=== PATIENT | female | born 1985 | race Caucasian/White ===

== ENCOUNTER 2022-02-22 17:25 | Emergency (ER) | payer BC, OTHER ==
--- NOTE | 2022-02-22 17:29 | ERPHSYRPT ---
- History of Present Illness Time Seen by Provider: 02/22/22 17:29 Source: patient Exam Limitations: no limitations Physician History: This is a 36-year-old white female who is a patient of Dr. 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 Her primary complaint today is a severe sore throat. She also has some left ear pain and in her mind, facial swelling of the left side of her face. Last week, patient states that she had a mono test performed that was negative. However she did not appear to be certain of that. She states that on 02/21/2022 patient took a home COVID test and this was negative. Patient was seen at [facility] today and was given an injection of a steroid. She also had, per her report, the strep test that was negative today. Because of her worsening sore throat, she came to the emergency department for evaluation and management. Patient denies chest pain. She denies shortness of breath. 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 She was relatively taken off of her cardiac medications by her environmental sustainability manager. Patient has a history of anxiety and depression. Timing/Duration: day(s) (6), worse Cough Quality/Degree: no cough Possible Cause: no prior episodes Modifying Factors: Improves With: other (Hurts to swallow) Associated Symptoms: earache (Left side), headache, muscle aches, sore throat, No fever, No chills, No chest pain/soreness, No cough, No shortness of breath Allergies/Adverse Reactions: azithromycin Allergy (Intermediate, Verified 02/22/22 17:41) rash vomit Sulfa (Sulfonamide Antibiotics) Allergy (Intermediate, Verified 02/22/22 17:41) rash vomit Home Medications: ALPRAZolam [Alprazolam] 0.5 mg PO HS 02/22/22 [History] Norgestimate-Ethinyl Estradiol [Tri Femynor 28 Tablet] 1 tab PO DAILY 02/22/22 [History] Phentermine HCl 37.5 mg PO DAILY 02/22/22 [History] Venlafaxine HCl ER 75 mg [Effexor XR 75 MG] 75 mg PO DAILY 02/22/22 [History] Travel Risk - International Travel Have you traveled outside of the country in past 3 weeks: No - Coronavirus Screening Are you exhibiting any of the following symptoms?: No Close contact with a COVID-19 positive Pt in past 14-21 Days: No - Review of Systems Constitutional: No Symptoms Eyes: No Symptoms Ears, Nose, & Throat: Ear Pain (Left side), Throat Pain Respiratory: No Symptoms Cardiac: No Symptoms Abdominal/Gastrointestinal: No Symptoms Genitourinary Symptoms: No Symptoms Musculoskeletal: Arthralgias, Myalgias Skin: Rash Neurological: No Symptoms Psychological: No Symptoms Endocrine: No Symptoms Hematologic/Lymphatic: No Symptoms Immunological/Allergic: No Symptoms All Other Systems: Reviewed and Negative - Past Medical History Pertinent Past Medical History: Yes - Past Surgical History Past Surgical History: Yes - Nursing Vital Signs Nursing Vital Signs: Initial Vital Signs Temperature 98.4 F 02/22/22 17:32 Pulse Rate 93 H 02/22/22 17:32 Respiratory Rate 20 02/22/22 17:32 Blood Pressure 153/99 02/22/22 17:32 O2 Sat by Pulse Oximetry 98 02/22/22 17:32 Pain Scale Pain Intensity 8 - Physical Exam General Appearance: no apparent distress, alert, anxiety Eye Exam: PERRL/EOMI, eyes nml inspection Ears, Nose, Throat Exam: pharyngeal erythema Neck Exam: lymphadenopathy (Left submandibular and upper left cervical chain) Respiratory Exam: normal breath sounds, lungs clear, airway intact, No chest tenderness, No respiratory distress, No accessory muscle use Cardiovascular Exam: regular rate/rhythm, normal heart sounds, normal peripheral pulses Gastrointestinal/Abdomen Exam: soft, normal bowel sounds, No tenderness Pelvic Exam: not done Rectal Exam: not done Back Exam: normal inspection, normal range of motion, No CVA tenderness, No vertebral tenderness Extremity Exam: normal inspection, normal range of motion, pelvis stable Neurologic Exam: alert, oriented x 3, cooperative, material damage adjuster II-XII nml as tested, normal mood/affect, nml cerebellar function, nml station & gait, sensation nml Skin Exam: normal color, warm, dry Lymphatic Exam: No adenopathy SpO2 Interpretation: normal O2 Delivery: Room Air - Course Nursing assessment & vital signs reviewed: Yes Ordered Tests: Medication Summary Discontinued Medications Generic Name Dose Route Start Last Admin Trade Name Freq PRN Reason Stop Dose Admin Hydrocodone Bitart/Acetaminophen 10 ml 02/22/22 18:02 02/22/22 18:13 Hydrocodone/Acetaminophen 5 Ml Udcup PO 02/22/22 18:03 10 ml STAT STA Administration Hydrocodone Bitart/Acetaminophen Confirm 02/22/22 18:13 Hydrocodone/Acetaminophen 5 Ml Udcup Administered 02/22/22 18:14 Dose 10 ml .ROUTE .STK-MED ONE - Progress Air Movement: good Progress Note: 02/22/22 18:49 I am signing this patient out to Dr. Blayne Tate at shift change. He is going to follow-up on the results of pending studies and make final disposition. Blood Culture(s) Obtained: No Antibiotics given: No Counseled pt/family regarding: lab results, diagnosis, need for follow-up - Departure Departure Disposition: Home Clinical Impression: Pharyngitis Condition: Stable Critical Care Time: No Referrals: AMANDEEP GIANG [Primary Care Provider] - Follow up/PCP as directed Additional Instructions: Drink plenty of clear liquids. Take your medication as prescribed. Follow-up with your primary care physician tomorrow by phone to make arrangements for further evaluation and management. Call your primary care provider in 48 hours to check on the mumps test. Return to the emergency department if symptoms worsen Prescriptions: Hydrocodone/Acetaminophen [Hydrocodone-Acetamn 7.5-325/15] 10 ml PO Q8H PRN PRN #120 ml MDD 30 ml PRN Reason: Cough Prednisone 10 mg [Deltasone 10 mg] 10 mg PO TID #12 tablet
[2022-02-22] MEDS ORDERED: HYDROCODONE-ACETAMIN 2.5-108/5 ML SOLUTION PO STA (18:02)
[2022-02-22] MEDS ORDERED: HYDROCODONE-ACETAMIN 2.5-108/5 ML SOLUTION ONE (18:13)
[2022-02-22 19:04] LABS: INFLUENZA A NEGATIVE (NEGATIVE); INFLUENZA B NEGATIVE (NEGATIVE); RESPIRATORY SYNCTIAL VIRUS NEGATIVE (Negative); SARS-CoV-2 Xpert Express NEGATIVE (NEGATIVE)
[2022-02-22 19:05] VITALS: BP 131/98; PULSE 87; O2SAT 98
[2022-02-24 19:09] LABS: Mumps Abs, IgG 95.9 AU/mL (Immune >10.9)
== END 2022-02-22 19:15 | disposition home or self-care (01) ==
LOC: ED 17:25
DX: J02.9 Acute pharyngitis, unspecified (principal); R21 Rash and other nonspecific skin eruption; R51.9 Headache, unspecified; M79.10 Myalgia, unspecified site; R53.83 Other fatigue; H92.02 Otalgia, left ear; Z79.891 Long term (current) use of opiate analgesic; Z79.899 Other long term (current) drug therapy; Z86.16 Personal history of COVID-19
CPT/HCPCS: 0241U; 36415; 86735; 99283; A9270-GY

== ENCOUNTER 2022-04-27 19:08 | Emergency (ER) | payer BC, OTHER ==
[2022-04-27] MEDS ORDERED: MORPHINE SULFATE 2 MG INJ IV ONE (20:52)
[2022-04-27] MEDS ORDERED: Sodium Chloride 0.9% 1000 ML 1,000 ML IV SCH (21:00)
--- NOTE | 2022-04-27 21:00 | ERPHSYRPT ---
- History of Present Illness Time Seen by Provider: 04/27/22 20:16 Historian: patient Exam Limitations: no limitations Patient Subjective Stated Complaint: pt states that she had had abdominal pain and sqeezing feeling for 2 weeks. pt states as soon as she eats or drinks she vomits minutes later. states she is passign gas and having regular bowel movments. states she feels a pulsating pain in mid abdominal area. bowels sounds present in all 4 quads. pain is worse today. states she was recently diagnosed with a low EF on echocardiogram by Dr. Carrillo, that is likely familial. Triage Nursing Assessment: pt is alert and oriented and states her pain is at 7/10 in abdominal area. Physician History: Patient is a 36-year-old female presents to emergency department for evaluation of epigastric and left upper quadrant pain. Patient states that her pain has been intermittent for the past 2 weeks. However pain is got worse over the past day. Patient states she now is unable to tolerate p.o. Patient states when she eats she vomits. Patient unable to tolerate liquids or solids. However no change in bowel movements. No diarrhea. No trauma. No fever. Patient states she feels a pulsating sensation in her abdomen. 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 Patient states her ejection fraction dropped to as low as 30%. However she is now up to the 51 to 55% range. Patient denies chest pain. No shortness of breath. Patient's pain currently 7 out of 10. Patient requesting pain medication. Patient denies a history of the same. She voices no other complaints or concerns at this time. Portions of this note were created with voice recognition technology. There may be grammatical, spelling, punctuation or sound alike errors Timing/Duration: week(s) Quality: aching Abdominal Pain Onset Location: LUQ, epigastric Pain Radiation: no radiation Severity of Pain-Max: moderate Severity of Pain-Current: mild Modifying Factors: Improves With: eating Associated Symptoms: denies symptoms Previous symptoms: no prior history Allergies/Adverse Reactions: azithromycin Allergy (Intermediate, Verified 02/22/22 17:41) rash vomit Sulfa (Sulfonamide Antibiotics) Allergy (Intermediate, Verified 02/22/22 17:41) rash vomit erythromycin base Allergy (Verified 04/27/22 20:25) Home Medications: ALPRAZolam [Alprazolam] 0.5 mg PO HS 02/22/22 [History] Norgestimate-Ethinyl Estradiol [Tri Femynor 28 Tablet] 1 tab PO DAILY 02/22/22 [History] Phentermine HCl 37.5 mg PO DAILY 02/22/22 [History] Venlafaxine HCl ER 75 mg [Effexor XR 75 MG] 75 mg PO DAILY 02/22/22 [History] Hx Tetanus, Diphtheria Vaccination/Date Given: No Hx Influenza Vaccination/Date Given: No Hx Pneumococcal Vaccination/Date Given: No Travel Risk - International Travel Have you traveled outside of the country in past 3 weeks: No - Coronavirus Screening Are you exhibiting any of the following symptoms?: No Close contact with a COVID-19 positive Pt in past 14-21 Days: No - Vaccine Status Have you recieved a Covid-19 vaccination: Yes 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: [employer] - Vaccination Dates Date of 2cond Vaccination (if applicable): unknown - Review of Systems Constitutional: No Symptoms, No Fever, No Chills Eyes: No Symptoms Ears, Nose, & Throat: No Symptoms Respiratory: No Symptoms, No Cough, No Dyspnea Cardiac: No Symptoms, No Chest Pain, No Edema, No Syncope Abdominal/Gastrointestinal: No Symptoms, No Abdominal Pain, No Nausea, No Vomiting, No Diarrhea Genitourinary Symptoms: No Symptoms, No Dysuria Musculoskeletal: No Symptoms, No Back Pain, No Neck Pain Skin: No Symptoms, No Rash Neurological: No Symptoms, No Dizziness, No Focal Weakness, No Sensory Changes Psychological: No Symptoms Endocrine: No Symptoms Hematologic/Lymphatic: No Symptoms Immunological/Allergic: No Symptoms All Other Systems: Reviewed and Negative - Past Medical History Pertinent Past Medical History: Yes Psycho-Social History: Anxiety, Depression - Past Surgical History Past Surgical History: Yes Female Surgical History: Tubal Ligation - Social History Smoking Status: Never smoker Exposure to second hand smoke: Yes Drug Use: none Patient Lives Alone: No - Female History Hx Last Menstrual Period: 04/13/22 Hx Now: No - Nursing Vital Signs Nursing Vital Signs: Initial Vital Signs Temperature 97.7 F 04/27/22 20:08 Pulse Rate 84 04/27/22 20:08 Respiratory Rate 18 04/27/22 20:08 Blood Pressure 123/100 04/27/22 20:08 O2 Sat by Pulse Oximetry 100 04/27/22 20:08 Pain Scale Pain Intensity 5 - Physical Exam General Appearance: no apparent distress, alert Eye Exam: PERRL/EOMI, eyes nml inspection Ears, Nose, Throat Exam: normal ENT inspection, TMs normal, pharynx normal, moist mucous membranes Neck Exam: normal inspection, non-tender, supple, full range of motion Respiratory Exam: normal breath sounds, lungs clear, airway intact, No chest tenderness, No respiratory distress Cardiovascular Exam: regular rate/rhythm, normal heart sounds, normal peripheral pulses Gastrointestinal/Abdomen Exam: soft, tenderness, other (Tenderness to palpation epigastrium left upper quadrant.), No mass, No ecchymosis, No organomegaly, No splenomegaly Back Exam: normal inspection, normal range of motion, No CVA tenderness, No vertebral tenderness Extremity Exam: normal inspection, normal range of motion, pelvis stable Neurologic Exam: alert, oriented x 3, cooperative, normal mood/affect, nml cerebellar function, sensation nml, No motor deficits Skin Exam: normal color, warm, dry SpO2 Interpretation: normal SpO2: 100 O2 Delivery: Room Air - Course Nursing assessment & vital signs reviewed: Yes EKG Interpreted by Me: RATE (78), Sinus Rhythm, NORMAL AXIS, NORMAL INTERVALS - CT Exams Abdomen/Pelvis CT Interpretation: Tele-radiologist Report (Negative for acute inflammatory process in the abdomen or pelvis) Ordered Tests: Active Orders 24 hr Category Date Time Status IV Insertion STAT Care 04/27/22 20:52 Active ABDOMEN AND PELVIS W/0 CONTRAS [CT] Stat Exams 04/27/22 22:33 Taken CBC W DIFF Stat Lab 04/27/22 20:52 Ordered CMP Stat Lab 04/27/22 20:52 Ordered HCG,QUALITATIVE URINE Stat Lab 04/27/22 21:02 Completed LIPASE Routine Lab 04/27/22 Completed TROPONIN Q4H Lab 04/27/22 21:00 Ordered TROPONIN Q4H Lab 04/28/22 01:00 Ordered TROPONIN Q4H Lab 04/28/22 05:00 Ordered UA W/RFX CULTURE Stat Lab 04/27/22 21:02 Completed Medication Summary Generic Name Dose Route Start Last Admin Trade Name Freq PRN Reason Stop Dose Admin Sodium Chloride 1,000 mls @ 100 mls/hr 04/27/22 21:00 Sodium Chloride 0.9% 1000 Ml IV 05/27/22 20:59 .Q10H SUELLEN Discontinued Medications Generic Name Dose Route Start Last Admin Trade Name Nelda PRN Reason Stop Dose Admin Morphine Sulfate 2 mg 04/27/22 20:52 04/27/22 22:29 Morphine Sulfate 2 Mg/Ml Inj IV 04/27/22 20:53 2 mg STAT ONE Administration Morphine Sulfate Confirm 04/27/22 22:29 Morphine Sulfate 2 Mg/Ml Inj Administered 04/27/22 22:30 Dose 2 mg .ROUTE .STK-MED ONE Ondansetron HCl 4 mg 04/27/22 22:27 04/27/22 22:30 Zofran 4 Mg/Udtablet Orally Disintegrating PO 04/27/22 22:28 4 mg STAT ONE Administration Ondansetron HCl Confirm 04/27/22 22:28 Zofran 4 Mg/Udtablet Orally Disintegrating Administered 04/27/22 22:29 Dose 4 mg .ROUTE .STK-MED ONE Lab/Rad Data: Laboratory Results 04/27/22 04/27/22 04/27/22 Range/Units Unknown 21:02 21:02 Lipase 253 (23-300) U/L Urinalys Dipstick Clnc MAIN LAB Urine Color YELLOW (YELLOW) Urine Appearance CLEAR (CLEAR) Urine pH 5.5 (5-6) Ur Specific [place] 1.015 (1.005-1.025) POC Urine Protein Conf NEGATIVE (Negative) Urine Ketones LARGE-80 (NEGATIVE) Urine Nitrite NEGATIVE (NEGATIVE) Urine Bilirubin NEGATIVE (NEGATIVE) Urine Urobilinogen 0.2 (0-1) mg/dL Urine Leukocytes NEGATIVE (NEGATIVE) Urine WBC (Auto) 0-2 (0-5) /HPF Urine RBC (Auto) 0-2 (0-2) /HPF U Epithel Cells (Auto) RARE (FEW) /HPF Urine Bacteria (Auto) Not Reportable Urine RBC NEGATIVE (0-5) Sav/ul Urine Mucus (Auto) SLIGHT (NEGATIVE) /HPF Ur Culture Indicated? NO Urine Glucose NEGATIVE (NEGATIVE) mg/dL Urine HCG, Qual NEGATIVE (Negative) - Progress Progress: improved Progress Note: Staff only able to draw enough blood to check lipase. Lipase within normal limits. CT abdomen pelvis normal as well. Vital stable. Patient states that her primary care doctor is unavailable till May. She prefers to be referred to [facility]. A referral to [facility] made on discharge paperwork. Patient will follow up on an outpatient basis for further evaluation. Patient voices no other complaints or concerns at this time. Portions of this note were created with voice recognition technology. There may be grammatical, spelling, punctuation or sound alike errors 04/27/22 23:51 Counseled pt/family regarding: diagnosis, need for follow-up, rad results - Departure Departure Disposition: Home Clinical Impression: Abdominal pain Condition: Stable Critical Care Time: No Referrals: AMANDEEP VU [Primary Care Provider] - Follow up/PCP as directed ASH FELIPE NP [NON-STAFF PHY W/O PRIVILEGES] - Follow up/PCP as directed Additional Instructions: Discharge/Care Plan CARLOSMEDARDO RYAN was seen on 04/27/22 in the Emergency Room. The patient was counseled regarding Diagnosis,Lab results, Imaging studies, need for follow up and when to return to the Emergency Room. Prescriptions given: Discharge Note I have spoken with the patient and/or caregivers. I have explained the patient's condition, diagnosis and treatment plan based on the information available to me at this time. I have answered the patient's and/or caregiver's questions and ad dressed any concerns. The patient and/or caregivers have as good understanding of the patient's diagnosis, condition and treatment plan as can be expected at this point. The vital signs have been stable. The patient's condition is stable and appropriate for discharge from the emergency department. The patient will pursue further outpatient evaluation with the primary care physician or other designated or consulting physician as outlined in the discharge instructions. The patient and/or caregivers are agreeable to this plan of care and follow-up instructions have been explained in detail. The patient and/or caregivers have received these instruction. The patient/and or caregivers are aware that any significant change in condition or worsening of symptoms should prompt an immediate return to this or the closest emergency department or call 911.
[2022-04-27 21:50] LABS: Appearance CLEAR (CLEAR); Bilirubin NEGATIVE (NEGATIVE); Glucose NEGATIVE (NEGATIVE); Ketones LARGE-80 (NEGATIVE); Ph 5.5 (5-6); Protein,Urine Dip NEGATIVE (Negative); RBC NEGATIVE Ery/ul (0-5); Specific Gravity 1.015 (1.005-1.025)
[2022-04-27 21:51] LABS: Dipstick done @ ? MAIN LAB; Nitrite NEGATIVE (NEGATIVE); Urobilinogen 0.2 mg/dL (0-1)
[2022-04-27 21:52] LABS: Epithelial Cells RARE /HPF (FEW); Mucus SLIGHT /HPF (NEGATIVE); RBC 0-2 /HPF (0-2); Urine Cultured Indicated? NO; WBC 0-2 /HPF (0-5)
[2022-04-27] MEDS ORDERED: ZOFRAN ODT 4 MG PO ONE (22:27)
[2022-04-27] MEDS ORDERED: ZOFRAN ODT 4 MG ONE (22:28)
[2022-04-27] MEDS ORDERED: MORPHINE SULFATE 2 MG INJ ONE (22:29)
[2022-04-27 23:49] VITALS: BP 130/91
[2022-04-28 00:13] VITALS: PULSE 79; O2SAT 98
--- NOTE | 2022-04-28 08:57 | XRAY ---
Indication: Left upper quadrant pain. Constipation, nausea, and vomiting. Multiple contiguous axial images obtained through the abdomen and pelvis without contrast. Comparison: None Lung bases clear. Heart not enlarged. Stomach mildly distended with food/fluid. Noncontrasted stomach and bowel loops appear nonobstructed with normal appendix. Little scattered colonic fecal debris greatest in the right hemicolon. Bilateral tubal ligation clips. No free fluid/air. Remaining liver, gallbladder, pancreas, spleen, adrenal glands, kidneys, ureters, bladder, uterus, and aorta are unremarkable for noncontrast exam. Osseous structures intact with minimal dextroscoliosis centered at L1. No ventral or inguinal hernias. Impression: Negative CT abdomen/pelvis without contrast exam. Comment: Preliminary interpretation made by [facility]. No critical discrepancy.
== END 2022-04-28 00:13 | disposition home or self-care (01) ==
LOC: ED 19:08
DX: R10.12 Left upper quadrant pain (principal); R10.13 Epigastric pain; R11.10 Vomiting, unspecified; Z79.899 Other long term (current) drug therapy
CPT/HCPCS: 36415; 74176; 81015; 81025; 83690; 96374; 99283; J2270; Q0162

== ENCOUNTER 2022-11-28 07:32 | Day surgery (SDC) | payer BC, OTHER ==
[~2022-11-28 07:32] MED LIST: CEFAZOLIN 2 GM-D5W BAG** 2 GM/50 ML ML IV ONE; CEFAZOLIN 2 GM-D5W BAG** 2 GM/50 ML ML IV SCH; Lactated Ringers 1,000 ML IV ONE; Lactated Ringers 1,000 ML IV SCH
[2022-11-28] MEDS ORDERED: Transderm Scop 1.5MG Patch ONE (07:57)
[2022-11-28] MEDS ORDERED: Transderm Scop 1.5MG Patch TOP PRN (08:26)
[2022-11-28] MEDS ORDERED: Versed 2 MG/2 ML Injection IV PRN (08:33)
[2022-11-28] MEDS ORDERED: Versed 2 MG/2 ML Injection IV ONE (08:55)
[2022-11-28] MEDS ORDERED: DIPRIVAN 200 MG/20 ML IV ONE (09:24)
[2022-11-28] MEDS ORDERED: Xylocaine-Mpf 2% 5 Ml Vial ONE (09:24)
[2022-11-28] MEDS ORDERED: Decadron 4 MG INJ ONE (09:24)
[2022-11-28] MEDS ORDERED: SUBLIMAZE 100 MCG/2 ML ONE (09:24)
[2022-11-28] MEDS ORDERED: Zofran 4 MG/2 ML VIAL ONE (09:24)
[2022-11-28] MEDS ORDERED: TORAdol 30 mg Injection ONE (09:31)
[2022-11-28] MEDS ORDERED: TORAdol 30 mg Injection IM ONE (10:49)
[2022-11-28] MEDS ORDERED: Zofran 4 MG/2 ML VIAL IV PRN (10:49)
[2022-11-28 11:36] VITALS: O2SAT 98
[2022-11-28 11:50] VITALS: BP 157/94; PULSE 69
--- NOTE | 2022-11-29 08:04 | OP ---
SURGERY DATE/TIME: 11/28/2022 0924 PREOPERATIVE DIAGNOSIS: Menorrhagia with failed medical management. POSTOPERATIVE DIAGNOSIS: Menorrhagia with failed medical management. PROCEDURE: Hysteroscopy D&C with NovaSure ablation. SURGEON: Taj Nielsen D.O. IGNITION MECHANIC: Shala Miles, surgical device sales representative. ANESTHESIA: General. ESTIMATED BLOOD LOSS: Minimal. COMPLICATIONS: None. INDICATIONS: The risks, benefits, indications and alternatives of the procedure were reviewed with the patient prior to procedure. The patient understood the risk of infection, bleeding, bowel injury, bladder injury, uterine perforation, pelvic infection, thromboembolic disorder associated with the surgery and desires to have this surgery as a possible means to alleviate her current medical condition. DESCRIPTION OF PROCEDURE AND FINDINGS: At this point the patient is taken to the operating room, given general sedation, placed in the dorsal lithotomy position, prepped and draped in the usual sterile fashion. A weighted speculum is then placed into the patient's vagina and the anterior lip of the cervix is grasped with a single tooth tenaculum. Endocervical dilators were advanced through the endocervical canal where a 5 mm hysteroscope was then placed in through the endocervical region towards the fundal region where visualization of the uterine cavity appeared to be within normal limits and no gross abnormalities were visualized. From this point hysteroscope was removed and a curette was then placed into the fundus of the uterus and curettage was performed in all quadrants of the uterus retrieving a mild to moderate amount of tissue. From this point hemostasis was obtained. From this point, the NovaSure instrument was then placed in through the endocervical region towards the fundal region and retracted approximately 1 cm with a length of 6 cm. After engagement of the machine at 6 cm, the width was noted to be 3.6 cm and the ablation then took place with approximation of 36 seconds of ablative time. After complete ablation, the instrument was then disengaged and removed from the uterine cavity without complication. From this point all instruments were removed from the patient's vaginal region. The patient was then taken out of the dorsal lithotomy position, was then taken out of anesthesia and was taken to the recovery room in stable condition. All instruments and laps were accounted for x2.
== END 2022-11-28 11:55 | disposition home or self-care (01) ==
LOC: SDC 07:32
PROVIDERS: ATTEND Obstetrics & Gynecology
DX: N92.0 Excessive and frequent menstruation with regular cycle (principal)
CPT/HCPCS: 81025; J0690; J1100; J1885; J2250; J2405; J2704; J3010; A9270-GY

== ENCOUNTER 2024-06-11 17:07 | Emergency (ER) | payer BC ==
[2024-06-11 17:18] VITALS: RESP 20; TEMP 97.5; O2SAT 100
--- NOTE | 2024-06-11 17:18 | ERPHSYRPT ---
- History of Present Illness Source: patient Exam Limitations: no limitations Timing/Duration: gradual onset (Persistent) Severity: mild (To moderate) ENT Location: dental (Left upper molars) Prearrival Treatment: prescription meds (Clindamycin and Flagyl) Modifying Factors: Improves With: nothing Associated Symptoms: facial pain/swelling (Left cheek worsening), tooth pain (Left upper molar sites), No sore throat, No difficulty swallowing Hx Tetanus, Diphtheria Vaccination/Date Given: No Hx Influenza Vaccination/Date Given: No Hx Pneumococcal Vaccination/Date Given: No <ESTEPHANIA HENRIQUEZ - Last Filed: 06/11/24 19:07> <MICHAEL TATE - Last Filed: 06/11/24 21:47> - History of Present Illness Time Seen by Provider: 06/11/24 17:18 Physician History: This is a 38-year-old white female patient who has had 2 root canals in the left upper molar region. Most recently, the second root canal was done approximately 2 weeks ago. Since that time she continues to have throbbing pain in her left cheek feels swollen and she feels as though there may be an abscess or infection tracking down her cheek to the proximal neck area on the left side. She has had a low-grade fever. Patient has been on clindamycin for 5 days and started on Flagyl in the last day or 2. (ESTEPHANIA HENRIQUEZ) Allergies/Adverse Reactions: azithromycin Allergy (Intermediate, Verified 10/09/22 07:21) rash vomit Sulfa (Sulfonamide Antibiotics) Allergy (Intermediate, Verified 10/09/22 07:21) rash vomit erythromycin base Allergy (Verified 10/09/22 07:21) Home Medications: ALPRAZolam [Alprazolam] 0.5 mg PO HS 02/22/22 [History] Omeprazole Magnesium [Prilosec Otc] 40 tab PO DAILY 10/09/22 [History] Travel Risk - International Travel Have you traveled outside of the country in past 3 weeks: No - Emerging Infectious Disease Are you exhibiting symptoms associated with any current EIDs: No <ESTEPHANIA HENRIQUEZ - Last Filed: 06/11/24 19:07> - Review of Systems Constitutional: No Symptoms Eyes: No Symptoms Ears, Nose, & Throat: Other (Left cheek/facial swelling and pain) Respiratory: No Symptoms Cardiac: No Symptoms Abdominal/Gastrointestinal: No Symptoms Genitourinary Symptoms: No Symptoms Musculoskeletal: No Symptoms Skin: No Symptoms Neurological: No Symptoms Psychological: No Symptoms Endocrine: No Symptoms Hematologic/Lymphatic: No Symptoms Immunological/Allergic: No Symptoms All Other Systems: Reviewed and Negative <ESTEPHANIA HENRIQUEZ - Last Filed: 06/11/24 19:07> - Past Medical History Pertinent Past Medical History: Yes ENT History: No Pertinent History Cardiac History: Hypertension Respiratory History: No Pertinent History Endocrine Medical History: No Pertinent History Musculoskeletal History: No Pertinent History GI Medical History: No Pertinent History History: No Pertinent History Psycho-Social History: Anxiety, Depression Female Reproductive Disorders: No Pertinent History - Past Surgical History Past Surgical History: Yes Neuro Surgical History: No Pertinent History Cardiac: No Pertinent History Respiratory: No Pertinent History Gastrointestinal: No Pertinent History Genitourinary: No Pertinent History Female Surgical History: Section, Tubal Ligation Other Surgical History: x2, lumpectomy 2016 - Social History Smoking Status: Former smoker Exposure to second hand smoke: Yes Drug Use: none Patient Lives Alone: No <ESTEPHANIA HENRIQUEZ - Last Filed: 06/11/24 19:07> - Physical Exam General Appearance: no apparent distress, alert, anxiety, thin Eye Exam: bilateral eye: normal inspection, PERRL, EOMI Ear Exam: bilateral ear: auricle normal Nasal Exam: normal inspection Throat Exam: normal, pharynx normal, dental tenderness (Upper molar) Neck Exam: normal inspection, non-tender, supple, full range of motion Cardiovascular/Respiratory Exam: chest non-tender, no respiratory distress Abdominal Exam: non-tender Neurologic Exam: alert, oriented x 3, cooperative, associate 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 of 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 II-XII nml as tested, nml cerebellar function, nml station & gait, sensation nml Skin Exam: normal color, warm, dry SpO2 Interpretation: normal O2 Delivery: Room Air <ESTEPHANIA HENRIQUEZ - Last Filed: 06/11/24 19:07> - Nursing Vital Signs Nursing Vital Signs: Initial Vital Signs Temperature 97.5 F 06/11/24 17:12 Pulse Rate 89 06/11/24 17:12 Respiratory Rate 20 06/11/24 17:12 Blood Pressure 141/89 06/11/24 17:12 O2 Sat by Pulse Oximetry 100 06/11/24 17:12 Pain Scale Pain Intensity 0 - Course Nursing assessment & vital signs reviewed: Yes <ESTEPHANIA HENRIQUEZ - Last Filed: 06/11/24 19:07> - CT Exams Maxillofacial Bones CT Interpretation: Tele-radiologist Report (CT facial bones no comps. Normal CT facial bones without contrast) <MICHAEL TATE - Last Filed: 06/11/24 21:47> Ordered Tests: Active Orders 24 hr Category Date Time Status FACIAL BONES WO CONTRAST [CT] Stat Exams 06/11/24 17:41 Taken Medication Summary Discontinued Medications Generic Name Dose Route Start Last Admin Trade Name Freq PRN Reason Stop Dose Admin Ibuprofen 400 mg 06/11/24 18:33 06/11/24 18:54 Ibuprofen 400 Mg Tablet PO 06/11/24 18:34 400 mg STAT ONE Administration Ibuprofen Confirm 06/11/24 18:53 Ibuprofen 400 Mg Tablet Administered 06/11/24 18:54 Dose 400 mg .ROUTE .STK-MED ONE Oxycodone/Acetaminophen 1 tab 06/11/24 18:33 06/11/24 18:53 Oxycodone Hcl/Apap 5 Mg/325 Mg Tablet PO 06/11/24 18:34 1 tab STAT STA Administration Oxycodone/Acetaminophen Confirm 06/11/24 18:53 Oxycodone Hcl/Apap 5 Mg/325 Mg Tablet Administered 06/11/24 18:54 Dose 1 tab .ROUTE .STK-MED ONE - Progress Progress: improved, pain not gone completely <ESTEPHANIA HENRIQUEZ - Last Filed: 06/11/24 19:07> - Progress Counseled pt/family regarding: diagnosis, need for follow-up, rad results <MICHAEL TATE - Last Filed: 06/11/24 21:47> - Progress Progress Note: 06/11/24 19:10 I medical decision making and the assignment of low complexity to this patient's medical issue today is based on review of the patient's past medical history, review the patient's medication list, the review of patient drug allergy list, history present illness and physical findings on examination. The workup in this patient includes CT scan of the face to evaluate for facial, dental subcutaneous abscesses 06/11/24 19:11 I am transferring care of this patient to Dr. Tate at shift change. He will follow-up on pending studies and make final disposition. (ESTEPHANIA HENRIQUEZ) 38-year-old female presents to our ED for evaluation of facial swelling. Patient has a known dental abscess she is currently on her second round of clindamycin and metronidazole. Patient feels that her symptoms are worsening. Note interval trauma. CT face ordered per Dr. Henriquez is negative for fractures no obvious abnormalities or no mention of worsening abscess. 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 She will speak to her dentist for further management options. No indication for further workup. Patient advised to continue the clindamycin and Flagyl. Patient states she is ready for discharge. She voices no other complaints or concerns at this time. Portions of this note were created with voice recognition technology. There may be grammatical, spelling, punctuation or sound alike errors Portions of this note were created with voice recognition technology. There may be grammatical, spelling, punctuation or sound alike errors 06/11/24 21:45 (MICHAEL TATE) Medical Desision Making - Independent Historian Additional History obtained from: Spouse <ESTEPHANIA HENRIQUEZ - Last Filed: 06/11/24 19:07> - Departure Departure Disposition: Home Critical Care Time: No <ESTEPHANIA HENRIQUEZ - Last Filed: 06/11/24 19:07> <MICHAEL TATE - Last Filed: 06/11/24 21:47> - Departure Clinical Impression: Pain, dental, Dental abscess, Facial swelling Condition: Stable Referrals: AMANDEEP VU [Primary Care Provider] - Follow up/PCP as directed Additional Instructions: Discharge/Care Plan MEDARDO GONZALEZ RYAN was seen on 06/11/24 in the Emergency Room. The patient was counseled regarding Diagnosis,Lab results, Imaging studies, need for follow up and when to return to the Emergency Room. Prescriptions given: Discharge Note I have spoken with the patient and/or caregivers. I have explained the patient's condition, diagnosis and treatment plan based on the information available to me at this time. I have answered the patient's and/or caregiver's questions and addressed any concerns. The patient and/or caregivers have as good understanding of the patient's diagnosis, condition and treatment plan as can be expected at this point. The vital signs have been stable. The patient's condition is stable and appropriate for discharge from the emergency department. The patient will pursue further outpatient evaluation with the primary care physician or other designated or consulting physician as outlined in the discharge instructions. The patient and/or caregivers are agreeable to this plan of care and follow-up instructions have been explained in detail. The patient and/or caregivers have received these instruction. The patient/and or caregivers are aware that any significant change in condition or worsening of symptoms should prompt an immediate return to this or the closest emergency department or call 911.
[2024-06-11] MEDS ORDERED: PERCOCET TABLET 5/325MG ONE (18:53)
[2024-06-11] MEDS ORDERED: MOTRIN 400 MG ONE (18:53)
[2024-06-11] MEDS: PERCOCET TABLET 5/325MG PO STA (18:53)
[2024-06-11] MEDS: MOTRIN 400 MG PO ONE (18:54)
[2024-06-11 21:03] VITALS: BP 110/64; PULSE 86
--- NOTE | 2024-06-12 08:32 | XRAY ---
Indication: Left teeth pain. Status post root canal surgery 2 weeks ago. Fever. Abscess. Multiple contiguous axial images obtained through the facial bones without contrast. Sagittal and coronal reformatted images obtained. Comparison: None No acute fracture, suspicious bony lesions, or osseous destructive process. Orbits are bilaterally symmetric. Paranasal sinuses and nasal passages are pneumatized and clear. Visualized noncontrasted soft tissues including base of brain are unremarkable. Impression: Negative CT facial bones without contrast exam.
== END 2024-06-11 21:54 | disposition home or self-care (01) ==
LOC: ED 17:07
DX: K04.7 Periapical abscess without sinus (principal); K08.89 Other specified disorders of teeth and supporting structures; R22.0 Localized swelling, mass and lump, head; I10 Essential (primary) hypertension; Z79.899 Other long term (current) drug therapy
CPT/HCPCS: 70486; 99283; A9270-GY

== ENCOUNTER 2024-08-21 12:52 | Emergency (ER) | payer BC, OTHER ==
[2024-08-21 13:03] VITALS: TEMP 98.1
[2024-08-21] MEDS ORDERED: MAALOX ES 30 ML UNIT DOSE ONE (13:33)
[2024-08-21] MEDS ORDERED: PROTONIX 40 MG IV IV ONE (13:33)
[2024-08-21] MEDS ORDERED: XYLOCAINE VISCOUS 2% 15 ML CUP ONE (13:33)
[2024-08-21] MEDS ORDERED: DUONEB 0.5-3 MG/3 ml Neb IH ONE (13:34)
[2024-08-21] MEDS: GI COCKTAIL 45 ML (Maalox/Lidocaine) PO ONE (13:38)
[2024-08-21] MEDS: DUONEB 0.5-3 MG/3 ml Neb IH ONE (13:38)
[2024-08-21] MEDS: PROTONIX 40 MG IV IV ONE (13:39)
--- NOTE | 2024-08-21 14:32 | XRAY ---
Indication: Short of breath. Comparison: None Portable chest demonstrates normal heart and lungs. Bony thorax intact with minimal levoscoliosis.
[2024-08-21 14:41] LABS: INFLUENZA A NEGATIVE (NEGATIVE); INFLUENZA B NEGATIVE (NEGATIVE); RESPIRATORY SYNCTIAL VIRUS NEGATIVE (NEGATIVE); SARS-CoV-2 Xpert Express NEGATIVE (NEGATIVE)
[2024-08-21 15:00] LABS: BASOPHIL % 0.6 % (0.1-1.2); Basophil (Absolute #) 0.04 x10^3/uL (0.01-0.08); Eosinophil % 0.4 % (0.7-5.8); Eosinophil (Absolute #) 0.03 x10^3/uL (0.04-0.36); Hematocrit 40.9 % (34.1-44.9); Hemoglobin 13.5 g/dL (11.2-15.7); IMMATURE GRAN # 0.02 x10^3u/L (0.001-0.031); IMMATURE GRAN % 0.3 % (0.001-0.429); Lymphocyte (Absolute #) 1.72 x10^3/uL (1.18-3.74); Lymphocytes % 25.3 % (19.3-51.7); Mean Cell Volume 91.7 fL (79.4-94.8); Mean Corpuscular Hemoglobin 30.3 pg (25.6-32.2); Mean Platelet Volume 9.2 fL (9.4-12.3); Monocytes % 5.9 % (4.7-12.5); Neutrophil % 67.5 % (34.0-71.1); Platelet Count 264 x10^3/uL (182-369); Red Blood Count 4.46 x10^6/uL (3.93-5.22); White Blood Count 6.8 x10^3/uL (3.98-10.04)
[2024-08-21 15:14] LABS: ALBUMIN 4.5 g/dL (3.5-5.0); ANION GAP 13.4 MEQ/L (5-15); BILIRUBIN,TOTAL 0.2 mg/dL (0.2-1.3); Calcium 9.5 mg/dL (8.4-10.2); Creatinine 1 0.56 mg/dL (0.52-1.04); EST GLOMERULAR FILTRATION RATE 120.5 ML/MIN; MAGNESIUM 1.9 mg/dL (1.6-2.3); Potassium 3.6 mmol/L (3.5-5.1); Total Protein 7.3 g/dL (6.3-8.2)
[2024-08-21 15:17] LABS: HCG SERUM TEST NEGATIVE (NEGATIVE)
[2024-08-21 16:02] VITALS: BP 105/61
--- NOTE | 2024-08-21 16:06 | ERPHSYRPT ---
- History of Present Illness Time Seen by Provider: 08/21/24 13:00 Historian: patient Exam Limitations: no limitations Patient Subjective Stated Complaint: C/O SOB, especially upon exertion with chest tightness for a few days. Denies cough or fever. Triage Nursing Assessment: Patient ambulated back to ER. Not SOB at this time. No cough. Skin tone normal. BENAVIDES WNL. She is alert and oriented. Physician History: 38-year-old female with history of GERD, anxiety presented to the ER with complains of chest tightness with some shortness of breath and hurts to take a deep breath. Patient reports this has been going on for almost 1 week and lately getting worse. She denies any cough fever or chills. Has home COVID test done which was negative. Pain is more in the substernal area and feels there is a lump in the epigastric area despite taking her Prilosec. Denies any history of coronary artery disease, no long travel, no DVT/PEs. No abdominal pain nausea vomiting or diarrhea otherwise. Feels short of breath more with some exertional work. Patient oxygen saturation is 100% on room air with heart rate in 90s. Nitro Today/Relief: no nitro taken today Aspirin Treatment Today: no aspirin today Allergies/Adverse Reactions: azithromycin Allergy (Intermediate, Verified 08/21/24 12:54) rash vomit Sulfa (Sulfonamide Antibiotics) Allergy (Intermediate, Verified 08/21/24 12:54) rash vomit erythromycin base Allergy (Verified 08/21/24 12:54) Latex, Natural Rubber Allergy (Verified 08/21/24 12:54) Home Medications: ALPRAZolam [Alprazolam] 0.5 mg PO HS 02/22/22 [History] Omeprazole Magnesium [Prilosec Otc] 40 tab PO DAILY 10/09/22 [History] Potassium Chloride 10 meq PO BID 08/21/24 [History] Hx Tetanus, Diphtheria Vaccination/Date Given: Yes Hx Influenza Vaccination/Date Given: No Hx Pneumococcal Vaccination/Date Given: No Immunizations Up to Date: Yes Travel Risk - International Travel Have you traveled outside of the country in past 3 weeks: No - Emerging Infectious Disease Are you exhibiting symptoms associated with any current EIDs: Yes Symptoms: Headaches/Body Aches/, Shortness of Breath - Review of Systems Constitutional: Fatigue Eyes: No Symptoms Ears, Nose, & Throat: No Symptoms Respiratory: Dyspnea, Dyspnea on Exertion (CASTRO) Cardiac: Chest Pain, Palpitations Abdominal/Gastrointestinal: Nausea Genitourinary Symptoms: No Symptoms Musculoskeletal: No Symptoms Neurological: No Symptoms Psychological: Anxiety Endocrine: No Symptoms Hematologic/Lymphatic: No Symptoms - Past Medical History Pertinent Past Medical History: Yes ENT History: No Pertinent History Cardiac History: Hypertension Respiratory History: No Pertinent History Endocrine Medical History: No Pertinent History Musculoskeletal History: No Pertinent History GI Medical History: No Pertinent History History: No Pertinent History Psycho-Social History: Anxiety, Depression Female Reproductive Disorders: No Pertinent History Other Medical History: low ejection fraction, Tannery Gummer: Dr. Carrillo - Past Surgical History Past Surgical History: Yes Neuro Surgical History: No Pertinent History Cardiac: No Pertinent History Respiratory: No Pertinent History Gastrointestinal: No Pertinent History Genitourinary: No Pertinent History Female Surgical History: Section, Tubal Ligation Other Surgical History: x2, lumpectomy 2016 - Female History Hx Last Menstrual Period: No longer has them Hx Now: (unkn) - Social History Smoking Status: Former smoker Exposure to second hand smoke: No Drug Use: none Patient Lives Alone: No - Social Determinants of Health Will the patient participate in the screening: Declined to provide - Nursing Vital Signs Nursing Vital Signs: Initial Vital Signs Temperature 98.1 F 08/21/24 12:56 Pulse Rate 83 08/21/24 12:56 Respiratory Rate 20 08/21/24 12:56 Blood Pressure 136/90 08/21/24 12:56 O2 Sat by Pulse Oximetry 100 08/21/24 12:56 Pain Scale Pain Intensity 3 - Physical Exam General Appearance: no apparent distress, alert, anxiety Eye Exam: PERRL/EOMI Ears, Nose, Throat Exam: normal ENT inspection, pharynx normal, moist mucous membranes Neck Exam: normal inspection, non-tender, supple, full range of motion Respiratory Exam: normal breath sounds, lungs clear Cardiovascular Exam: regular rate/rhythm, normal heart sounds Gastrointestinal/Abdomen Exam: soft, normal bowel sounds, tenderness (Minimal epigastric tenderness to deep palpation) Back Exam: normal inspection, normal range of motion Extremity Exam: normal inspection, normal range of motion, pelvis stable Neurologic Exam: alert, oriented x 3, cooperative Skin Exam: normal color SpO2 Interpretation: normal SpO2: 100 O2 Delivery: Room Air - Course EKG Interpreted by Me: RATE (76), Sinus Rhythm, NORMAL AXIS, NORMAL INTERVALS, NORMAL QRS, Other (T wave inversion in anteroseptal leads) Ordered Tests: Active Orders 24 hr Category Date Time Status Customer Support Analyst STAT Care 08/21/24 13:27 Completed EKG-ER Only STAT Care 08/21/24 13:26 Completed IV Insertion STAT Care 08/21/24 13:26 Completed CHEST 1 VIEW (PORTABLE) Stat Exams 08/21/24 13:26 Completed CBC W DIFF Stat Lab 08/21/24 15:03 Completed CMP Stat Lab 08/21/24 15:04 Completed D-DIMER QUANTITATIVE Stat Lab 08/21/24 15:03 Completed HCG QUALITATIVE, SERUM Stat Lab 08/21/24 Completed LIPASE Stat Lab 08/21/24 15:04 Completed Lactic Acid Stat Lab 08/21/24 14:50 Completed MAGNESIUM Stat Lab 08/21/24 15:04 Completed NT PRO BNPII Stat Lab 08/21/24 Completed TROPONIN Q4H Lab 08/21/24 15:03 Completed TROPONIN Q4H Lab 08/21/24 17:30 Ordered TROPONIN Q4H Lab 08/21/24 21:30 Ordered Respiratory Therapy Assessment DAILY RT 08/21/24 13:38 Completed Medication Summary Discontinued Medications Generic Name Dose Route Start Last Admin Trade Name Freq PRN Reason Stop Dose Admin Al Hydrox/Mg Hydrox/Simethicone Confirm 08/21/24 13:33 Mag Hydrox/Al Hydrox/Simeth 30 Ml Udcup Administered 08/21/24 13:34 Dose 30 ml .ROUTE .STK-MED ONE Albuterol/Ipratropium 3 ml 08/21/24 13:26 08/21/24 13:38 Ipratropium/Albuterol Sulfate 3 Ml Ampul.Neb IH 08/21/24 13:27 3 ml STAT ONE Administration Albuterol/Ipratropium Confirm 08/21/24 13:34 Ipratropium/Albuterol Sulfate 3 Ml Ampul.Neb Administered 08/21/24 13:35 Dose 3 ml IH .STK-MED ONE Lidocaine HCl Confirm 08/21/24 13:33 Lidocaine Hcl 2% Viscous 15 Ml Udcup Administered 08/21/24 13:34 Dose 15 ml .ROUTE .STK-MED ONE Magnesium Hydroxide 45 ml 08/21/24 13:27 08/21/24 13:38 Mag Hydrx/Alum Hyd/Simeth/Lido 45 Ml Bottle PO 08/21/24 13:28 45 ml STAT ONE Administration Morphine Sulfate 4 mg 08/21/24 16:24 08/21/24 16:26 Morphine Sulfate 4 Mg/Ml Injection IV 08/21/24 16:25 Not Given STAT ONE Ondansetron HCl 4 mg 08/21/24 16:24 08/21/24 16:26 Ondansetron Hcl 4 Mg/2 Ml Vial IV 08/21/24 16:25 Not Given STAT ONE Pantoprazole Sodium 40 mg 08/21/24 13:27 08/21/24 13:39 Pantoprazole 40 Mg Vial IV 08/21/24 13:28 40 mg STAT ONE Administration Pantoprazole Sodium Confirm 08/21/24 13:33 Pantoprazole 40 Mg Vial Administered 08/21/24 13:34 Dose 40 mg IV .Kosmix-[email or web address].[email or web address] ONE Lab/Rad Data: Laboratory Result Diagrams 08/21/24 15:03 08/21/24 15:04 Laboratory Results 08/21/24 08/21/24 08/21/24 Range/Units Unknown Unknown 15:04 WBC (3.98-10.04) x10^3/uL RBC (3.93-5.22) x10^6/uL Hgb (11.2-15.7) g/dL Hct (34.1-44.9) % MCV (79.4-94.8) fL MCH (25.6-32.2) pg MCHC (32.2-35.5) g/dL RDW (11.7-14.4) % Plt Count (182-369) x10^3/uL MPV (9.4-12.3) fL Gran % (34.0-71.1) % Immature Gran % (Auto) (0.001-0.429) % Nucleat RBC Rel Count (0.00-0.2) % Eos # (Auto) (0.04-0.36) x10^3/uL Immature Gran # (Auto) (0.001-0.031) x10^3u/L Absolute Lymphs (auto) (1.18-3.74) x10^3/uL Absolute Monos (auto) (0.24-0.86) x10^3/uL Absolute Nucleated RBC (0.00-0.012) x10^3u/L Lymphocytes % (19.3-51.7) % Monocytes % (4.7-12.5) % Eosinophils % (0.7-5.8) % Basophils % (0.1-1.2) % Absolute Granulocytes (1.56-6.13) x10^3/uL Basophils # (0.01-0.08) x10^3/uL D-Dimer (0.0-0.50) mg/L Sodium 141 (135-145) mmol/L Potassium 3.6 (3.5-5.1) mmol/L Chloride 108 H (98-107) mmol/L Carbon Dioxide 24 (22-30) mmol/L Anion Gap 13.4 (5-15) MEQ/L BUN 8 (7-17) mg/dL Creatinine 0.56 (0.52-1.04) mg/dL Estimated GFR 120.5 ML/MIN Glucose 81 (74-106) mg/dL Lactic Acid (0.4-2.0) Calcium 9.5 (8.4-10.2) mg/dL Magnesium 1.9 (1.6-2.3) mg/dL Total Bilirubin 0.20 (0.2-1.3) mg/dL AST 27 (14-36) U/L ALT 27 (0-35) U/L Alkaline Phosphatase 34 L (38-126) U/L Troponin I (0.000-0.033) ng/mL NT-Pro-B Natriuret Pep 98.0 (<300) pg/mL Serum Total Protein 7.3 (6.3-8.2) g/dL Albumin 4.5 (3.5-5.0) g/dL Lipase 260 (23-300) U/L Serum HCG, Qual NEGATIVE (NEGATIVE) Influenza Type A Ag (NEGATIVE) Influenza Type B Ag (NEGATIVE) RSV (PCR) (NEGATIVE) SARS-CoV-2 (PCR) (NEGATIVE) 08/21/24 08/21/24 08/21/24 Range/Units 15:03 15:03 15:03 WBC 6.8 (3.98-10.04) x10^3/uL RBC 4.46 (3.93-5.22) x10^6/uL Hgb 13.5 (11.2-15.7) g/dL Hct 40.9 (34.1-44.9) % MCV 91.7 (79.4-94.8) fL MCH 30.3 (25.6-32.2) pg MCHC 33.0 (32.2-35.5) g/dL RDW 12.0 (11.7-14.4) % Plt Count 264 (182-369) x10^3/uL MPV 9.2 L (9.4-12.3) fL Gran % 67.5 (34.0-71.1) % Immature Gran % (Auto) 0.3 (0.001-0.429) % Nucleat RBC Rel Count 0.0 (0.00-0.2) % Eos # (Auto) 0.03 L (0.04-0.36) x10^3/uL Immature Gran # (Auto) 0.02 (0.001-0.031) x10^3u/L Absolute Lymphs (auto) 1.72 (1.18-3.74) x10^3/uL Absolute Monos (auto) 0.40 (0.24-0.86) x10^3/uL Absolute Nucleated RBC 0.00 (0.00-0.012) x10^3u/L Lymphocytes % 25.3 (19.3-51.7) % Monocytes % 5.9 (4.7-12.5) % Eosinophils % 0.4 L (0.7-5.8) % Basophils % 0.6 (0.1-1.2) % Absolute Granulocytes 4.60 (1.56-6.13) x10^3/uL Basophils # 0.04 (0.01-0.08) x10^3/uL D-Dimer 0.25 (0.0-0.50) mg/L Sodium (135-145) mmol/L Potassium (3.5-5.1) mmol/L Chloride (98-107) mmol/L Carbon Dioxide (22-30) mmol/L Anion Gap (5-15) MEQ/L BUN (7-17) mg/dL Creatinine (0.52-1.04) mg/dL Estimated GFR ML/MIN Glucose (74-106) mg/dL Lactic Acid (0.4-2.0) Calcium (8.4-10.2) mg/dL Magnesium (1.6-2.3) mg/dL Total Bilirubin (0.2-1.3) mg/dL AST (14-36) U/L ALT (0-35) U/L Alkaline Phosphatase (38-126) U/L Troponin I < 0.012 (0.000-0.033) ng/mL NT-Pro-B Natriuret Pep (<300) pg/mL Serum Total Protein (6.3-8.2) g/dL Albumin (3.5-5.0) g/dL Lipase (23-300) U/L Serum HCG, Qual (NEGATIVE) Influenza Type A Ag (NEGATIVE) Influenza Type B Ag (NEGATIVE) RSV (PCR) (NEGATIVE) SARS-CoV-2 (PCR) (NEGATIVE) 08/21/24 08/21/24 Range/Units 14:50 13:45 WBC (3.98-10.04) x10^3/uL RBC (3.93-5.22) x10^6/uL Hgb (11.2-15.7) g/dL Hct (34.1-44.9) % MCV (79.4-94.8) fL MCH (25.6-32.2) pg MCHC (32.2-35.5) g/dL RDW (11.7-14.4) % Plt Count (182-369) x10^3/uL MPV (9.4-12.3) fL Gran % (34.0-71.1) % Immature Gran % (Auto) (0.001-0.429) % Nucleat RBC Rel Count (0.00-0.2) % Eos # (Auto) (0.04-0.36) x10^3/uL Immature Gran # (Auto) (0.001-0.031) x10^3u/L Absolute Lymphs (auto) (1.18-3.74) x10^3/uL Absolute Monos (auto) (0.24-0.86) x10^3/uL Absolute Nucleated RBC (0.00-0.012) x10^3u/L Lymphocytes % (19.3-51.7) % Monocytes % (4.7-12.5) % Eosinophils % (0.7-5.8) % Basophils % (0.1-1.2) % Absolute Granulocytes (1.56-6.13) x10^3/uL Basophils # (0.01-0.08) x10^3/uL D-Dimer (0.0-0.50) mg/L Sodium (135-145) mmol/L Potassium (3.5-5.1) mmol/L Chloride (98-107) mmol/L Carbon Dioxide (22-30) mmol/L Anion Gap (5-15) MEQ/L BUN (7-17) mg/dL Creatinine (0.52-1.04) mg/dL Estimated GFR ML/MIN Glucose (74-106) mg/dL Lactic Acid 1.5 (0.4-2.0) Calcium (8.4-10.2) mg/dL Magnesium (1.6-2.3) mg/dL Total Bilirubin (0.2-1.3) mg/dL AST (14-36) U/L ALT (0-35) U/L Alkaline Phosphatase (38-126) U/L Troponin I (0.000-0.033) ng/mL NT-Pro-B Natriuret Pep (<300) pg/mL Serum Total Protein (6.3-8.2) g/dL Albumin (3.5-5.0) g/dL Lipase (23-300) U/L Serum HCG, Qual (NEGATIVE) Influenza Type A Ag NEGATIVE (NEGATIVE) Influenza Type B Ag NEGATIVE (NEGATIVE) RSV (PCR) NEGATIVE (NEGATIVE) SARS-CoV-2 (PCR) NEGATIVE (NEGATIVE) - Progress Progress: improved, re-examined Air Movement: good Progress Note: 08/21/24 16:04 38-year-old is evaluated in the ER for epigastric/lower chest pain and tightness with some exertional dyspnea for the last few weeks. Patient is given DuoNeb, feeling better on reevaluation. EKG is sinus rhythm with no ST elevations. Normal white count, chemistries fairly unremarkable. Negative D-dimers. Chest x-ray negative for any acute cardiopulmonary findings. Patient has negative troponin. With her symptoms going on for this long I do not think patient needs second troponin. She is given Protonix and Carafate, feeling better on ree valuation. I believe patient's symptoms are more of a GERD with esophagitis and Prilosec is not working, I would switch her to Protonix and give Carafate for few days and outpatient follow-up recommended. Discussed signs symptoms of worsening needing return to ER which she seems understanding. Stable for discharge. Counseled pt/family regarding: lab results, diagnosis, need for follow-up, rad results Medical Desision Making - Diagnostic Testing Diagnostic test were ordered, analyzed, and reviewed by me: Yes Radiological Interpretation: Reviewed by me - Risk of complications The pt has a mod risk of morbidity or mortality based on: Need for prescription drug management - Departure Departure Disposition: Home Clinical Impression: Atypical chest pain, GERD with esophagitis Condition: Stable Critical Care Time: No Referrals: AMANDEEP VU [Primary Care Provider] - Follow up with PCP 1 day GEORGE ROY [CONSULTING PHYSICIAN] - Follow up/PCP as directed (Call for appointment) Instructions: Chest Pain, Adult ED, Acid Reflux, Adult and Adolescent ED Additional Instructions: Do not take Prilosec and start taking Protonix. Follow-up with primary care/cardiology for reevaluation. Return to ER for worsening chest pain or if having difficulty breathing etc. Prescriptions: Sucralfate 1 gm [Carafate 1 GM] 1 g PO ACHS #20 tablet PANTOPRAZOLE 40 mg Tablet [Protonix 40MG Tablet] 40 mg PO QAM #30 tab
[2024-08-21 16:15] VITALS: PULSE 88; RESP 20
[2024-08-21] MEDS: Zofran 4 MG/2 ML VIAL IV ONE (16:26)
[2024-08-21] MEDS: MORPHINE SULFATE 4 MG INJ IV ONE (16:26)
[2024-08-21 16:32] VITALS: O2SAT 100
== END 2024-08-21 16:32 | disposition home or self-care (01) ==
LOC: ED 12:52
DX: K21.00 Gastro-esophageal reflux disease with esophagitis, without bleeding (principal); R06.02 Shortness of breath; R07.9 Chest pain, unspecified; R10.13 Epigastric pain
CPT/HCPCS: 0241U; 36415; 71045; 80053; 83605; 83690; 83735; 83880; 84484; 84703; 85025; 85379; 93005; 93041; 94640; 96374; 99285; 99284; A9270-GY